=== PATIENT | female | born 1980 | race Caucasian/White ===

== ENCOUNTER → 2018-06-05 12:47 | Outpatient (CLI) | payer OTHER, SELFPAY ==
[2018-06-05 11:00] VITALS: BMI 26.6
[2018-06-08 08:14] LABS: HPV Genotype 16, Aptima Negative (Negative)
[2018-06-08 11:06] LABS: HPV APTIMA, High Risk Positive (Negative); HPV Genotype 18,45 Aptima Positive (Negative)
== END ==
PROVIDERS: Family Provider Nurse Practitioner Family; Referring Provider Obstetrics & Gynecology; Visit Provider Obstetrics & Gynecology
DX: Z12.4 Encounter for screening for malignant neoplasm of cervix (principal)
CPT/HCPCS: 87624; 88175; G0145

== ENCOUNTER → 2018-11-13 | Outpatient (CLI) | payer OTHER, SELFPAY ==
[2018-11-13 08:43] VITALS: BMI 26.6
[2018-11-13 20:29] LABS: Chlamydia Trachomatis by PCR Negative (Negative); Neisserai gonorrhoeae by PCR Negative (Negative); Probe Check PASS; Sample Adequacy Control PASS; Specimen Processing Control PASS
== END | disposition home or self-care (01) ==
LOC: LABSPEC 16:26
PROVIDERS: Family Provider Nurse Practitioner Family; PCP Nurse Practitioner Family; Referring Provider Nurse Practitioner Women's Health; Visit Provider Nurse Practitioner Women's Health
DX: N76.0 Acute vaginitis (principal); A64 Unspecified sexually transmitted disease
CPT/HCPCS: 87070; 87205; 87491; 87591

== ENCOUNTER → 2018-12-02 | Outpatient (CLI) | payer OTHER, SELFPAY ==
[2018-11-13 08:43] VITALS: BMI 26.6
--- NOTE | 2018-12-02 16:06 | US_ITS ---
STUDY: ULTRASOUND OF THE FEMALE PELVIS - COMPLETE REASON FOR EXAM: Female, 38 years old. Pain TECHNIQUE: Transabdominal and transvaginal ultrasound images were obtained of the pelvis TECHNICAL QUALITY: Adequate. COMPARISON: None. FINDINGS: The uterus measures 9.3 x 6.3 x 4.3 cm. Normal uterine cervix. The endometrium measures 7 mm in thickness. There is no demonstrated myometrial mass. Calcifications are noted in the uterine/cervical region. The right ovary measures 2.7 x 2.1 x 1.2 cm. There is no right ovarian cyst or ovarian mass. There is no visualized right adnexal mass or complex lesion. There is normal arterial and normal venous vascularity. The left ovary is not seen. There is no fluid in the cul-de-sac. US/Pelvic (Non ) IMPRESSION: No acute pelvic pathology identified. Calcifications incidentally noted in the uterine/cervical region. Electronically Signed: Felton Gutierrez, at 19:36 EDT Tel , Service support ,
--- NOTE | 2018-12-02 16:07 | US_ITS ---
STUDY: ULTRASOUND OF THE FEMALE PELVIS - COMPLETE REASON FOR EXAM: Female, 38 years old. Pain TECHNIQUE: Transabdominal and transvaginal ultrasound images were obtained of the pelvis TECHNICAL QUALITY: Adequate. COMPARISON: None. FINDINGS: The uterus measures 9.3 x 6.3 x 4.3 cm. Normal uterine cervix. The endometrium measures 7 mm in thickness. There is no demonstrated myometrial mass. Calcifications are noted in the uterine/cervical region. The right ovary measures 2.7 x 2.1 x 1.2 cm. There is no right ovarian cyst or ovarian mass. There is no visualized right adnexal mass or complex lesion. There is normal arterial and normal venous vascularity. The left ovary is not seen. There is no fluid in the cul-de-sac. US/Transvaginal Non- IMPRESSION: No acute pelvic pathology identified. Calcifications incidentally noted in the uterine/cervical region. Electronically Signed: Felton Gutierrez, at 19:36 EDT Tel , Service support ,
== END | disposition home or self-care (01) ==
LOC: US 15:53
PROVIDERS: Family Provider Nurse Practitioner Family; PCP Nurse Practitioner Family; Referring Provider Nurse Practitioner Women's Health; Visit Provider Nurse Practitioner Women's Health
DX: N88.8 Other specified noninflammatory disorders of cervix uteri (principal)
CPT/HCPCS: 76830; 76856; 93976

== ENCOUNTER → 2019-03-18 17:01 | Outpatient (CLI) | payer OTHER, SELFPAY ==
[2019-03-18 13:10] VITALS: BMI 26.4
[2019-03-18 20:09] LABS: Chlamydia Trachomatis by PCR Negative (Negative); Neisserai gonorrhoeae by PCR Negative (Negative); Probe Check PASS; Sample Adequacy Control PASS; Specimen Processing Control PASS
== END ==
PROVIDERS: Family Provider Nurse Practitioner Family; PCP Nurse Practitioner Family; Referring Provider Nurse Practitioner Women's Health; Visit Provider Nurse Practitioner Women's Health
DX: N89.8 Other specified noninflammatory disorders of vagina (principal); Z11.3 Encounter for screening for infections with a predominantly sexual mode of transmission
CPT/HCPCS: 87070; 87205; 87491; 87591

== ENCOUNTER → 2019-08-22 | Outpatient (CLI) | payer OTHER, SELFPAY ==
[2019-08-22 08:39] VITALS: BMI 26.4
[2019-08-22 15:05] LABS: Chlamydia Trachomatis by PCR Negative (Negative); Neisserai gonorrhoeae by PCR Negative (Negative); Probe Check PASS; Sample Adequacy Control PASS; Specimen Processing Control PASS
== END | disposition home or self-care (01) ==
PROVIDERS: PCP Nurse Practitioner Family; Referring Provider Obstetrics & Gynecology; Visit Provider Obstetrics & Gynecology
DX: N89.8 Other specified noninflammatory disorders of vagina (principal); L29.2 Pruritus vulvae
CPT/HCPCS: 87070; 87086; 87088; 87205; 87491; 87591

== ENCOUNTER → 2019-12-25 | Outpatient (CLI) | payer OTHER, SELFPAY ==
[2019-12-25 13:18] VITALS: BMI 26.4
== END | disposition home or self-care (01) ==
LOC: LABSPEC 16:54
PROVIDERS: PCP Nurse Practitioner Family; Referring Provider Obstetrics & Gynecology; Visit Provider Obstetrics & Gynecology
DX: N93.0 Postcoital and contact bleeding (principal)
CPT/HCPCS: 87070; 87205

== ENCOUNTER → 2020-04-01 | Outpatient (CLI) | payer OTHER, SELFPAY ==
[2020-04-01 08:37] VITALS: BMI 25.9
[2020-04-06 16:19] LABS: HPV APTIMA, High Risk Negative (Negative)
== END | disposition home or self-care (01) ==
PROVIDERS: PCP Nurse Practitioner Family; Referring Provider Obstetrics & Gynecology; Visit Provider Obstetrics & Gynecology
DX: R10.2 Pelvic and perineal pain (principal); Z12.4 Encounter for screening for malignant neoplasm of cervix
CPT/HCPCS: 87086; 87088; 87624; 88175; G0145

== ENCOUNTER → 2020-05-11 07:50 | Outpatient (CLI) | payer OTHER, SELFPAY ==
[2020-04-01 08:37] VITALS: BMI 25.9
--- NOTE | 2020-05-11 07:54 | US_ITS ---
STUDY: ULTRASOUND OF THE FEMALE PELVIS - COMPLETE REASON FOR EXAM: Female, 40 years old. PELVIC PAIN X 3-4 MONTHS LMP: 05/03/2020. TECHNIQUE: Transabdominal and Transvaginal TECHNICAL QUALITY: Adequate. COMPARISON: Comparison is made with prior study dated 12/02/2018. FINDINGS: The uterus is anteverted and is tilted to the right side of the pelvis. The uterus measures 9.4 cm x 5.9 cm x 5.3 cm. There is a Nabothian cyst of the cervix. The endometrium measures 12.2 mm in thickness, and is heterogeneous (striated). There is no demonstrated endometrial mass. There is no demonstrated myometrial mass. Once again, calcifications are seen in the cervical region of the uterus. I.U.D. - The patient does not have an I.U.D. The right ovary is visualized. The right ovary measures 2.9 cm x 3.3 cm x 1.9 cm. There is no right ovarian cyst or ovarian mass. There is no visualized right adnexal mass or complex lesion. There is normal arterial and normal venous vascularity. The left ovary is visualized. The left ovary measures 3.3 cm x 1.4 cm x 1.1 cm. There is no left ovarian cyst or ovarian mass. There is no visualized left adnexal mass or complex lesion. There is normal arterial and normal venous vascularity. There is no fluid in the cul-de-sac. The pre void volume of the bladder was 619 ml. Polycystic ovary disease: No. US/Transvaginal Non- IMPRESSION: Normal female pelvis. Electronically Signed: Gary Brunson, at 14:22 EST , Service support ,
--- NOTE | 2020-05-11 07:54 | US_ITS ---
STUDY: ULTRASOUND OF THE FEMALE PELVIS - COMPLETE REASON FOR EXAM: Female, 40 years old. PELVIC PAIN X 3-4 MONTHS LMP: 05/03/2020. TECHNIQUE: Transabdominal and Transvaginal TECHNICAL QUALITY: Adequate. COMPARISON: Comparison is made with prior study dated 12/02/2018. FINDINGS: The uterus is anteverted and is tilted to the right side of the pelvis. The uterus measures 9.4 cm x 5.9 cm x 5.3 cm. There is a Nabothian cyst of the cervix. The endometrium measures 12.2 mm in thickness, and is heterogeneous (striated). There is no demonstrated endometrial mass. There is no demonstrated myometrial mass. Once again, calcifications are seen in the cervical region of the uterus. I.U.D. - The patient does not have an I.U.D. The right ovary is visualized. The right ovary measures 2.9 cm x 3.3 cm x 1.9 cm. There is no right ovarian cyst or ovarian mass. There is no visualized right adnexal mass or complex lesion. There is normal arterial and normal venous vascularity. The left ovary is visualized. The left ovary measures 3.3 cm x 1.4 cm x 1.1 cm. There is no left ovarian cyst or ovarian mass. There is no visualized left adnexal mass or complex lesion. There is normal arterial and normal venous vascularity. There is no fluid in the cul-de-sac. The pre void volume of the bladder was 619 ml. Polycystic ovary disease: No. US/Pelvic (Non ) IMPRESSION: Normal female pelvis. Electronically Signed: Gary Brunson, at 14:22 EST , Service support ,
== END ==
PROVIDERS: PCP Nurse Practitioner Family; Referring Provider Obstetrics & Gynecology; Visit Provider Obstetrics & Gynecology
DX: R10.2 Pelvic and perineal pain (principal)
CPT/HCPCS: 76830; 76856; 93976

== ENCOUNTER → 2022-05-29 | Outpatient (CLI) | payer OTHER, SELFPAY ==
[2022-06-01 19:43] LABS: HPV APTIMA, High Risk Negative (Negative)
== END | disposition home or self-care (01) ==
LOC: LABSPEC 11:57
PROVIDERS: Referring Provider Obstetrics & Gynecology; Visit Provider Obstetrics & Gynecology
DX: Z01.419 Encounter for gynecological examination (general) (routine) without abnormal findings (principal)
CPT/HCPCS: 87624; 88175; G0145

== ENCOUNTER → 2025-01-30 | Outpatient (CLI) | payer OTHER, SELFPAY ==
--- OUTSIDE RECORDS SUMMARY | 2025-01-30 16:19 | XMS RPT_ITS | CCD ---
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 Specialty Start Date End Date Hetal Cho DO PCP - General Family Medicine 08/03/21 Fringing Machine Operator Relationship Specialty Start Date End Date Hetal Cho DO PCP - General Family Medicine 08/03/21 Fringing Machine Operator Relationship Specialty Start Date End Date Hetal Cho DO PCP - General Family Medicine 08/03/21 Fringing Machine Operator Relationship Specialty Start Date End Date Hetal Cho DO PCP - General Family Medicine 08/03/21 Team Status: Active Member Role Status Dates Lauren Camejo NP, MEAT SALES AND STORAGE MANAGER-C Family Provider Active Team Status: Inactive Member Role Status Dates Dr. Kim May MD Attending Provider Active Team Status: Inactive Member Role Status Dates Dr. Kim May MD Attending Provider, Referr ing Provider Active Fringing Machine Operator Relationship Specialty Start Date End Date Josy Jones, QUALITY CONTROL SYSTEMS MANAGER.STRATEGIC PLANNING SPECIALIST [address] [place] [address] PCP - General Family Medicine 06/13/22 Kim May [address] [facility] [address] [place] [address] [phone] PCP - Tent Finisher BITUMEN PLANT OPERATOR 06/28/22 Fringing Machine Operator Relationship Specialty Start Date End Date Hetal Cho DO PCP - General Family Medicine 08/03/21 06/12/22 Fringing Machine Operator Relationship Specialty Start Date End Date Josy Jones, QUALITY CONTROL SYSTEMS MANAGER.STRATEGIC PLANNING SPECIALIST [address] [place], [place] [id number] PCP - General Family Medicine 06/13/22 Kim May [address] [place] [phone] PCP - Tent Finisher Rent And Miscellaneous Remittance Clerk 06/28/22 Fringing Machine Operator Relationship Specialty Start Date End Date Josy Jones, QUALITY CONTROL SYSTEMS MANAGER.STRATEGIC PLANNING SPECIALIST [address] [place] [address] PCP - General Family Medicine 06/13/22 Kim May [address] [place] [phone] PCP - Tent Finisher Rent And Miscellaneous Remittance Clerk 06/28/22 Fringing Machine Operator Relationship Specialty Start Date End Date Josy Jones, QUALITY CONTROL SYSTEMS MANAGER.STRATEGIC PLANNING SPECIALIST [address] [place] [address] PCP - General Family Medicine 06/13/22 Kim May [address] [place] [id number] PCP - Tent Finisher Rent And Miscellaneous Remittance Clerk 06/28/22 Fringing Machine Operator Relationship Specialty Start Date End Date Josy Jones, QUALITY CONTROL SYSTEMS MANAGER.STRATEGIC PLANNING SPECIALIST [address] [place] [address] PCP - General Family Medicine 06/13/22 Kim May MD [address] [place] [phone] PCP - Tent Finisher Rent And Miscellaneous Remittance Clerk 06/28/22 Fringing Machine Operator Relationship Specialty Start Date End Date Josy Jones, QUALITY CONTROL SYSTEMS MANAGER.STRATEGIC PLANNING SPECIALIST [address] [place] [address] PCP - General Family Medicine 06/13/22 Kim May MD [address] [place] [address] [phone] PCP - Tent Finisher Rent And Miscellaneous Remittance Clerk 06/28/22 Fringing Machine Operator Relationship Specialty Start Date End Date Jsoy Jones, QUALITY CONTROL SYSTEMS MANAGER.STRATEGIC PLANNING SPECIALIST [address] [place] [address] PCP - General Family Medicine 06/13/22 Kim May MD [address] [place] [address] [phone] PCP - Tent Finisher Rent And Miscellaneous Remittance Clerk 06/28/22 Goals (unrecognized section and content) Goals may be documented in a n alternate section INFORMATION SOURCE (unrecogn ized section and content) DATE CREATED AUTHOR 07/19/2024 [facility] DATE CREATED AUTHOR AUTHOR'S ORGANIZ ATION 07/21/2024 [facility] DATE CREATED AUTHOR AUTHOR'S ORGANIZ ATION 07/24/2024 [facility] FOR RECORDS PERTAINING TO PATIENTS WHO ARE OR HAVE BEEN ENROLLED IN A CHEMICAL DEPENDENCY/SUBSTANCEABUSE PROGRAM, SOME INFORMATION MAY BE OMITTED. This clinical summary was aggregated from multiple sources. Caution should be exercised in using it in the provision of clinical care. This summary normalizes information from multiple sources, and as a consequence, information in this document may materially change the coding, format and clinical context of patient data. In addition, data may be omitted in some cases. CLINICAL DECISIONS SHOULD BE BASED ON THE PRIMARY CLINICAL RECORDS. [facility]. provides no warranty or guarantee of the accuracy or completeness of information in this document.
== END | disposition home or self-care (01) ==
LOC: LABSPEC 15:16
PROVIDERS: Referring Provider Obstetrics & Gynecology; Visit Provider Obstetrics & Gynecology
DX: N89.8 Other specified noninflammatory disorders of vagina (principal)
CPT/HCPCS: 87070; 87205